=== PATIENT | male | born 1955 | race Caucasian/White ===

== ENCOUNTER 2021-09-13 23:40 | Inpatient (IN) | payer MEDICARE ==
[~2021-09-13] VITALS: Ht 177.8 cm; Wt 128.4 kg
[~2021-09-13 23:40] MED LIST: LASIX20 MG PO; LASIX40 MG PO; LEVAQUIN750 MG PO
[2021-09-14 01:08] LABS: HEMOGLOBIN 15.4 gm/dl (14.0-17.5); RED BLOOD COUNT 4.96 M/UL (4.20-5.50); WHITE BLOOD COUNT 12.2 K/UL (4.5-11.0)
[2021-09-14 01:52] LABS: BUN/CREATININE RATIO 22 (0-10)
[2021-09-14 08:38] LABS: HEMOGLOBIN 14.2 gm/dl (14.0-17.5)
[2021-09-14 08:42] LABS: RED BLOOD COUNT 4.46 M/UL (4.20-5.50); WHITE BLOOD COUNT 8.2 K/UL (4.5-11.0)
[2021-09-14 09:04] LABS: BUN/CREATININE RATIO 20 (0-10)
[2021-09-14] MEDS ORDERED: ASPIRIN EC81 MG PO (13:32)
[2021-09-14] MEDS ORDERED: LISINOPRIL5 MG PO (13:32)
[2021-09-14] MEDS ORDERED: METOPROLOL SUCC25 MG PO (13:32)
[2021-09-14] MEDS ORDERED: LASIX40 MG PO (13:32)
--- NOTE | 2021-09-14 15:34 | NUR ---
09/14/21 1530 report called to [facility] to be transferred to room 5121
[2021-09-15 05:22] LABS: HEMOGLOBIN 13.4 gm/dl (14.0-17.5); RED BLOOD COUNT 4.39 M/UL (4.20-5.50); WHITE BLOOD COUNT 7.2 K/UL (4.5-11.0)
[2021-09-15 06:12] LABS: BUN/CREATININE RATIO 20 (0-10)
== END 2021-09-15 13:59 | disposition home or self-care (01) | DRG 280 ==
LOC: ER1 23:40 → 3 EAST 09-14 02:06 → CDU 09-14 02:06 → M/S 09-14 04:06 → 3 EAST 09-14 04:25 → M/S 09-14 15:50
PROVIDERS: Family Medicine; Internal Medicine; ADMIT Internal Medicine
PROC: 5A09457 Assistance with Respiratory Ventilation, 24-96 Consecutive Hours, Continuous Positive Airway Pressure (ICD-10-PCS; principal; 2021-09-14)
PROC: B24BZZZ Ultrasonography of Heart with Aorta (ICD-10-PCS; 2021-09-15)
DX: I11.0 Hypertensive heart disease with heart failure (principal); I50.23 Acute on chronic systolic (congestive) heart failure; I21.A1 Myocardial infarction type 2; J96.21 Acute and chronic respiratory failure with hypoxia; Z68.42 Body mass index [BMI] 45.0-49.9, adult; I25.10 Atherosclerotic heart disease of native coronary artery without angina pectoris; Z20.822 Contact with and (suspected) exposure to COVID-19; E66.9 Obesity, unspecified; J44.9 Chronic obstructive pulmonary disease, unspecified; I87.2 Venous insufficiency (chronic) (peripheral); E78.5 Hyperlipidemia, unspecified; G47.33 Obstructive sleep apnea (adult) (pediatric); E11.65 Type 2 diabetes mellitus with hyperglycemia; K74.60 Unspecified cirrhosis of liver; I16.0 Hypertensive urgency; I42.9 Cardiomyopathy, unspecified; Z91.14 Patient's other noncompliance with medication regimen; Z95.1 Presence of aortocoronary bypass graft; Z82.49 Family history of ischemic heart disease and other diseases of the circulatory system; Z79.899 Other long term (current) drug therapy; Z79.82 Long term (current) use of aspirin; Z87.891 Personal history of nicotine dependence; Z99.81 Dependence on supplemental oxygen
CPT/HCPCS: ECHO; 36415; 36600; 71045; 80048; 80053; 82550; 82553; 82803; 82962; 83036; 83605; 83874; 83880; 84484; 85025; 85027; 85610; 87040; 93005; 93306; 94640; 94664; 94760; 96374; 99285; J1650; J1940; Q9957; U0002